=== PATIENT | female | born 1975 | race Caucasian/White ===

== ENCOUNTER 2017-12-07 13:51 | Emergency (ER) | payer OTHER ==
[~2017-12-07] VITALS: Ht 157.5 cm; Wt 62.6 kg
[~2017-12-07 13:51] MED LIST: LOPRESSOR12.5 MG PO; ZESTRIL,PRINIV2.5 MG PO
[2017-12-07 15:53] VITALS: BP 140/86
== END 2017-12-07 15:59 | disposition home or self-care (01) ==
LOC: EME 13:51
DX: S16.1XXA Strain of muscle, fascia and tendon at neck level, initial encounter (principal); M62.838 Other muscle spasm; V43.62XA Car passenger injured in collision with other type car in traffic accident, initial encounter; Y92.410 Unspecified street and highway as the place of occurrence of the external cause; F17.200 Nicotine dependence, unspecified, uncomplicated
CPT/HCPCS: 72040; 99281; 99283